=== PATIENT | female | born 1965 | race Caucasian/White ===

== ENCOUNTER 2021-07-06 16:31 | Emergency (ER) | payer BC ==
[2021-07-06] MEDS ORDERED: Orphenadrine 100 MG Tab.ER PO STA (17:15)
[2021-07-06] MEDS ORDERED: Ketorolac 60 MG/2 ML SDV IM ONE (17:15)
== END 2021-07-06 18:53 | disposition home or self-care (01) ==
LOC: JD.ED 16:31
DX: G57.01 Lesion of sciatic nerve, right lower limb (principal)
CPT/HCPCS: 73502; 96372; 99283; A9270; J1885

== ENCOUNTER 2022-11-26 20:46 | Emergency (ER) | payer BC ==
[2022-11-26] MEDS ORDERED: Lidocaine 1% 5 ML VIAL INJECT ONE (21:16)
[2022-11-26] MEDS ORDERED: Diphtheria,Pertussis(Acell),Tetanus Vaccine 0.5 ML Syringe IM ONE (21:44)
== END 2022-11-26 21:55 | disposition home or self-care (01) ==
LOC: JD.ED 20:46
DX: S61.211A Laceration without foreign body of left index finger without damage to nail, initial encounter (principal); Z23 Encounter for immunization; W26.9XXA Contact with unspecified sharp object(s), initial encounter
CPT/HCPCS: 12001; 90471; 90715; 99282-25; 99283